=== PATIENT | female | born 1955 | race Caucasian/White ===

== ENCOUNTER 2023-12-04 11:02 | Emergency (ER) | payer MEDICARE, BC, SELFPAY ==
[2023-12-04 11:11] VITALS: BP 145/75; PULSE 47; RESP 16; TEMP 36.5; O2SAT 98
--- NOTE | 2023-12-04 11:25 | CT_ITS ---
Patient: MOISES LEWIS Facility:?[facility] Patient ID:?[id number] Site Patient ID:?[id number]. Site :?[id number] Study:?CT-Head WITHOUT-12/04/2023 11:55:56 AM Ordering Physician:NIR Final Report: INDICATION: Fall. Head injury. COMPARISON: None. TECHNIQUE: Noncontrast CT head. FINDINGS: Normal brain parenchymal morphology. No acute intracranial hemorrhage, acute infarct, focal edema, mass effect, or fracture. No midline shift. No abnormal ventricular dilatation. Normal calvarium and skull base. Visualized paranasal sinuses mastoid air cells are clear. Normal orbits bilaterally. IMPRESSION: 1. No acute intracranial abnormality. 2. Normal brain parenchymal morphology Please note that all CT scans at this facility use dose modulation, iterative reconstruction, and/or weight-based dosing when appropriate to reduce radiation dose to as low as reasonably achievable. Dictated by Balbir Joseph MD @ 12/04/2023 12:34:34 PM Signed by:?Balbir Joseph MD @12/04/2023 12:34:34 PM (Electronic Signature)
--- NOTE | 2023-12-04 11:25 | CT_ITS ---
Patient: MOISES LEWIS Facility:?[facility] Patient ID:?[id number] Site Patient ID:?[id number]. Site :?[id number] Study:?CT-Spine Cervical WITHOUT-12/04/2023 11:56:34 AM Ordering Physician:NIR Final Report: INDICATION: Fall. Head injury. COMPARISON: None. TECHNIQUE: Noncontrast CT cervical spine. FINDINGS: Straightening of the normal cervical lordosis. Normal vertebral body facet alignment. No acute fractures. No vertebral body loss of height. No spondylosis. No prevertebral soft tissue swelling. Degenerative fusion across the bilateral C3-4 facet joints. No fracture the visualized upper ribs. C1-2: No spinal canal narrowing. C2-3: No narrowing of spinal canal. Mild narrowing of bilateral foramina. C3-4: Disk degeneration. No narrowing of spinal canal. Uncovertebral joint hypertrophy results in moderate narrowing of the right neural foramen. No narrowing of the left neural foramen. C4-5: No narrowing of spinal canal. Mild narrowing of the right neural foramen. No narrowing of the left neural foramen. C5-6: No narrowing of the spinal canal. Mild to moderate narrowing of the bilateral foramina. C6-7: No spinal canal narrowing. Mild narrowing of bilateral foramina. C7-T1: No spinal canal or neural foraminal narrowing. Lung apices are clear. IMPRESSION: 1. Normal alignment. No fractures. 2. Cervical spondylosis. 3. No prevertebral soft tissue swelling. 4. At C2-3, mild narrowing of the bilateral neural foramina 5. At C3-4, moderate narrowing of the right neural foramen 6. At C5-6, [id number] narrowing of the bilateral neural foramina Please note that all CT scans at this facility use dose modulation, iterative reconstruction, and/or weight-based dosing when appropriate to reduce radiation dose to as low as reasonably achievable. Dictated by Balbir Joseph MD @ 12/04/2023 12:43:39 PM Signed by:?Balbir Joseph MD @12/04/2023 12:43:39 PM (Electronic Signature)
--- NOTE | 2023-12-04 11:34 | ED_ITS ---
HPI - Fall General Date Seen: 12/04/23 Chief Complaint: Fall/Minor Trauma Stated Complaint: fall, lac on head Time Seen by Provider: 12/04/23 11:02 Source: patient and family Mode of arrival: ambulatory Limitations: no limitations History of Present Illness HPI Narrative: Pt has balance issues was hanging clothes up in the closet and lost balance and fell backward and hit head on a handle or knob. Pt sat up right away and was with her. Bleeding is controlled, pt has an inch long lac on the back of her head. Pt doesnt know if she needs a head CT or just desiree? Patient is a very nice 68-year-old female who presents here ambulatory with the family, after she fell in her closet approximately 1-1/2 hour ago she fell backwards, she says she has really terrible balance, secondary to her neurologic condition called lateral sclerosis. She hit her head, and contacted her daughter, who was the equestrian trainer she thought she should be seen for either desiree, or possibly stitches, since this occurred she has had no problems with the nausea vomiting diaper low P issue denies any significant neck discomfort, or any other pain. No history of previous concussions brain bleeds, she is not on any anticoagulants. complaint: fall Onset (ago): minute(s) (30) Fall from: standing Fall witnessed: yes, by family Place fall occurred: home Loss of consciousness: No Prolonged down time: no Symptoms prior to fall: none Context: tripped/slipped and history of frequent falls Location of injury: head Related Data Home Medications Medication Instructions Recorded Confirmed duloxetine 20 mg capsule,delayed 20 mg PO BID 08/27/22 08/27/22 release pregabalin 200 mg capsule 200 mg PO BID 08/27/22 08/27/22 ibuprofen 400 mg tablet 400 mg PO Q8H PRN 08/31/22 08/31/22 Allergies Allergy/AdvReac Type Severity Reaction Status Date / Time cephalexin Allergy Verified 12/04/23 11:14 ciprofloxacin Allergy Hives Verified 12/04/23 11:14 Sulfa (Sulfonamide Allergy Verified 12/04/23 11:14 Antibiotics) Review of Systems Status of ROS: Reports: 10 or more systems reviewed and unremarkable except as noted in History and below PFSH PFS Surgical History S/P lumbar fusion (~03/2020) ?Z98.1 - Arthrodesis status (ICD-10) Status post right hip replacement (01/22/22) ?Z96.641 - Presence of right artificial hip joint (ICD-10) Family History Mother Hx of blood clots Social History Smoking Status: Never smoker Do you use any of these nicotine containing products: None Second hand tobacco smoke exposure: No Exam Narrative: Exam Narrative: Patient is seen in room 3 she is in no apparent distress she is an excellent conversationalist. Alert oriented x3, with a GCS of 15/15. Pupils are equal round reactive to light there is no nystagmus she tracks normally, cranial nerves 3-12 are normal her TMs are normal she has a horizontal laceration noted over her occiput, is gaping, but not acutely be ill bleeding. No obvious significant hematoma, laceration is approximately 2-2.5 inches in total length. Her neck is moves through 6-12 cm, lateral flexion normal rotation normal. Molecular Pathologist strengths are normal bilaterally, with a little bit less power on the left side which is normal for her both her arm and her leg. She is wheelchair confined. No other significant trauma is noted over her chest, thoracic, cervical, or lumbar spine. Her abdomen is soft, pelvis is normal stable. I discussed with her, options available to her I would wrist recommend let, given the size and depth of this wound, I think some sutures would be better than desiree at this point. We will do a CT to further confirm that there is no internal bleeding, and also a neck CT. I will give her some Tylenol. Const: Vital Signs, click to edit/add: Vital Signs - 24 hr 12/04/23 11:11 Temperature 97.7 F Pulse Rate [Right Pulse Oximeter] 47 L Respiratory Rate 16 Blood Pressure [Ri ght Upper Arm] 145/75 H Pulse Oximetry 98 Oxygen Delivery Me thod Room Air Documenting provider has reviewed patient's vital signs: yes Course Vital Signs Vital signs: Initial Vital Signs Temperature 97.7 F 12/04/23 11:11 Temperature Source Temporal Artery Scan 12/04/23 11:11 Pulse Rate 47 L 12/04/23 11:11 Pulse Rhythm Regular 12/04/23 11:11 Pulse Strength 3+ Normal 12/04/23 11:11 Respiratory Rate 16 12/04/23 11:11 Blood Pressure 145/75 H 12/04/23 11:11 Blood Pressure Mean 98 12/04/23 11:11 Blood Pressure Position Sitting 12/04/23 11:11 Pulse Oximetry 98 12/04/23 11:11 Oxygen Delivery Method Room Air 12/04/23 11:11 Vital Signs Temperature 97.7 F 12/04/23 11:11 Pulse Rate 47 L 12/04/23 11:11 Respiratory Rate 16 12/04/23 11:11 Blood Pressure 145/75 H 12/04/23 11:11 Pulse Oximetry 98 12/04/23 11:11 Oxygen Delivery Method Room Air 12/04/23 11:11 Temperature 97.7 F 12/04/23 11:11 Pulse Rate 47 L 12/04/23 11:11 Respiratory Rate 16 12/04/23 11:11 Blood Pressure 145/75 H 12/04/23 11:11 Pulse Oximetry 98 12/04/23 11:11 Oxygen Delivery Method Room Air 12/04/23 11:11 Medications Administered Medications: Discontinued Medications Generic Name Dose Route Start Last Admin Trade Name Geovanniq PRN Reason Stop Dose Admin Acetaminophen 1,000 mg 12/04/23 11:25 12/04/23 12:43 Acetaminophen 500 Mg Tablet PO 12/04/23 11:26 1,000 mg ONCE ONE Administration Lidocaine/Epinephrine 20 ml 12/04/23 12:16 12/04/23 12:43 Lidocaine 1%-Epi 1:100,000 20 Ml INFILTRATI 12/04/23 12:17 20 ml ONCE ONE Administration Lidocaine/Epinephrine/Tetracaine 3 ml 12/04/23 11:25 12/04/23 12:43 Lidocaine/Epinep/Tetracaine 3 Ml Gel..Ml. TOPICAL 12/04/23 11:26 3 ml ONCE ONE Administration MDM - Fall Medical Records Attestation: I reviewed the patient's medical records. Imaging Data CT scan - head: Radiologist's impression: Patient: MOISES LEWIS Facility:?[facility] Patient ID:?[id number] Site Patient ID:?[id number]. Site :?1955 Study:?CT Head WITHOUT-12/04/2023 11:55:56 AM Ordering Physician:NIR Final Report: INDICATION: Fall. Head injury. COMPARISON: None. TECHNIQUE: Noncontrast CT head. FINDINGS: Normal brain parenchymal morphology. No acute intracranial hemorrhage, acute infarct, focal edema, mass effect, or fracture. No midline shift. No abnormal ventricular dilatation. Normal calvarium and skull base. Visualized paranasal sinuses mastoid air cells are clear. Normal orbits bilaterally. IMPRESSION: 1. No acute intracranial abnormality. 2. Normal brain parenchymal morphology Please note that all CT scans at this facility use dose modulation, iterative reconstruction, and/or weight-based dosing when appropriate to reduce radiation dose to as low as reasonably achievable. Dictated by Balbir Joseph MD @ 12/04/2023 12:34:34 PM (Electronic Signature) CT- Other: Attestation: I have reviewed the pertinent imaging results. My impression: No evidence of significant cervical spine acute process, degeneration is notable primarily at multiple levels. Radiologist's is in agreement. Discharge Plan Discharge Clinical Impression: Laceration of head, Head injury, Fall Patient Disposition: Home w/ Parent or Adult Condition: Improved Instructions: Laceration (ED), Fall Prevention for Older Adults (ED), Head Injury (ED), Fall Prevention (ED), Head Laceration (ED) Additional Instructions: 4 stitches were used, these were both hemostatic, and also to bring it together. Recommend use of bacitracin on this daily, may shower later today please avoid using a brush or coma she will pull the stitches out, sutures should come out 9 days from today. Return here if increasing swelling fevers chills or signs of infection. There likely is a little bit of a head injury 2, so Tylenol for every 8 hours for the 1st couple days would be appropriate obviously if the headache worsens or you become weak or any other sort issues and come back to the emergency room I think the chance of this is low with the CT being and negative. Activity Level: No Restrictions Discharge Diet: Regular Prescriptions: No Action pregabalin 200 mg capsule 200 mg PO BID duloxetine 20 mg capsule,delayed release(DR/EC) 20 mg PO BID ibuprofen 400 mg tablet 400 mg PO Q8H PRN Follow Up/Referrals: Beti Paul MD [Primary Care Provider] - Stand Alone Forms: [facility] Info Instructions Procedures Laceration Laceration 1: Pre procedure diagnosis: Laceration to occipital Post procedure diagnosis: Same Site marking: not applicable Verification/time out: correct patient and correct site Name of person performing procedure: Jules Farris Site: scalp Size (cm): 7 Description: linear Depth: simple, single layer Local Anesthetic: lidocaine 1% and with epi Pre-repair: wound explored, irrigated extensively, deep structures intact and wound margins revised Skin layer closed with: nylon Size (cm): 3-0 Number of sutures: 4 Technique: simple interrupted Wound cleansing: sterile water Estimated blood loss (if any): none Conclusion: patient tolerated procedure
[2023-12-04] MEDS: LIDOCAINE/EPINEP/TETRACAINE 3 ML GEL..ML. TOPICAL (12:43)
[2023-12-04] MEDS: ACETAMINOPHEN 500 MG TABLET 1000 MG PO (12:43)
== END 2023-12-04 12:50 | disposition home or self-care (01) ==
PROVIDERS: Emergency Provider Family Medicine; PCP Family Medicine
DX: S01.01XA Laceration without foreign body of scalp, initial encounter (principal); W01.119A Fall on same level from slipping, tripping and stumbling with subsequent striking against unspecified sharp object, initial encounter
CPT/HCPCS: 12002; 70450; 72125; 99284; A9270

== ENCOUNTER 2023-12-24 16:35 | Inpatient (IN) | payer MEDICARE, BC, SELFPAY ==
[2023-12-24 16:50] VITALS: BP 126/81; PULSE 77; RESP 18; TEMP 36.9; O2SAT 94; BMI 29.2
--- NOTE | 2023-12-24 17:44 | ED.GENADULT ---
HPI - General Adult General Chief complaint: Eye Problems Stated complaint: Left eye pain Time Seen by Provider: 12/24/23 16:49 Source: patient Mode of arrival: wheelchair Limitations: no limitations History of Present Illness HPI narrative: 60-year-old female with a history of primary lateral sclerosis presents today with swelling of the left eye. Patient states that she was diagnosed with a blocked tear duct and was put on Augmentin on Wednesday this week. She states that since Wednesday her face has become more swollen, uncomfortable and red. She denies any fevers or chills. No nausea or vomiting. [facility] today and had a CT scan done. It showed a 1.3 x 1.5 deck or cystitis with surrounding preseptal cellulitis. Patient was instructed to come to the ER. Related Data Home Medications Medication Instructions Recorded Confirmed pregabalin 200 mg capsule 200 mg PO BID 08/27/22 12/24/23 duloxetine 30 mg capsule,delayed 30 mg PO BID 12/24/23 12/24/23 release Allergies Allergy/AdvReac Type Severity Reaction Status Date / Time cephalexin Allergy Verified 12/04/23 11:14 ciprofloxacin Allergy Hives Verified 12/04/23 11:14 Sulfa (Sulfonamide Allergy Verified 12/04/23 11:14 Antibiotics) Review of Systems Status of ROS: Reports: 10 or more systems reviewed and unremarkable except as noted in History and below [facility] Medical History (Updated 12/24/23 @ 18:00 by Shameka Sorto MD) Primary lateral sclerosis ?G12.23 - Primary lateral sclerosis (ICD-10) Vitamin B6 deficiency ?E53.1 - Pyridoxine deficiency (ICD-10) Varicose veins of both lower extremities ?I83.93 - Asymptomatic varicose veins of bilateral lower extremities (ICD-10) Surgical History (Updated 12/24/23 @ 17:52 by Shameka Sorto MD) S/P sclerotherapy of varicose veins ?Z98.890 - Other specified postprocedural states (ICD-10) ?Z86.79 - Personal history of other diseases of the circulatory system (ICD-10) S/P lumbar fusion (~03/2020) ?Z98.1 - Arthrodesis status (ICD-10) Status post right hip replacement (01/22/22) ?Z96.641 - Presence of right artificial hip joint (ICD-10) Family History Mother Hx of blood clots Social History Smoking Status: Never smoker Do you use any of these nicotine containing products: None Second hand tobacco smoke exposure: No How often do you have a drink containing alcohol: never AUDIT-C Alcohol total score: 0 Non-prescribed substance use: denies use Exam Narrative: Exam Narrative: Well-nourished well-developed patient in no acute distress. Alert and oriented. Answers questions appropriately. Mood and affect are appropriate. Thoughts are goal oriented and rational. No tangential or magical thinking noted. Patient speaks in full sentences without needing to catch her breath. HEENT: Normocephalic. Pupils are equally round reactive to light. Extraocular muscles are intact. Conjunctivae are moist without any icterus noted. Moist mucous membranes. Patient has significant swelling surrounding the left eye with what appears to be a enlarged dacrocyst. She has erythema around the eye that extends across the bridge of the nose and across the ipsilateral cheek. The skin is slightly indurated, hot to touch. Upper and lower eyelid are visibly swollen. Cardiovascular: Heart is regular rate and rhythm. Lungs: Clear to auscultation bilaterally. Const: Vital Signs, click to edit/add: Vital Signs - 24 hr 12/24/23 16:50 Temperature 98.4 F Pulse Rate [Pulse Oximeter] 77 Respiratory Rate 18 Blood Pressure [Le ft Upper Arm] 126/81 Pulse Oximetry 94 Oxygen Delivery Me thod Room Air Course Course ED Course: IV is established. Labs were drawn. I reviewed the patient's CT scan report from earlier today. Did have a conversation with Dr. Sorto who graciously accepts the patient for admission. Vital Signs Vital signs: Initial Vital Signs Temperature 98.4 F 12/24/23 16:50 Temperature Source Temporal Artery Scan 12/24/23 16:50 Pulse Rate 77 12/24/23 16:50 Pulse Rhythm Regular 12/24/23 16:50 Pulse Strength 3+ Normal 12/24/23 16:50 Respiratory Rate 18 12/24/23 16:50 Blood Pressure 126/81 12/24/23 16:50 Blood Pressure Mean 96 12/24/23 16:50 Blood Pressure Position Sitting 12/24/23 16:50 Pulse Oximetry 94 12/24/23 16:50 Oxygen Delivery Method Room Air 12/24/23 16:50 Vital Signs Temperature 98.4 F 12/24/23 16:50 Pulse Rate 77 12/24/23 16:50 Respiratory Rate 18 12/24/23 16:50 Blood Pressure 126/81 12/24/23 16:50 Pulse Oximetry 94 12/24/23 16:50 Oxygen Delivery Method Room Air 12/24/23 16:50 Temperature 98.4 F 12/24/23 16:50 Pulse Rate 77 12/24/23 16:50 Respiratory Rate 18 12/24/23 16:50 Blood Pressure 126/81 12/24/23 16:50 Pulse Oximetry 94 12/24/23 16:50 Oxygen Delivery Method Room Air 12/24/23 16:50 Medical Decision Making MDM Narrative Medical decision making narrative: 68-year-old female with Dacrocystitis and preseptal cellulitis. Patient will be admitted for IV antibiotics and further management. Discharge Plan Discharge Clinical Impression: Dacrocystitis, Preseptal cellulitis Patient Disposition: Admitted As Observation Condition: Stable
--- NOTE | 2023-12-24 17:46 | PM.IMHP1 ---
Hospitalist- H&P: HPI History of Present Illness Date Seen: 12/24/23 Chief complaint: Left eye pain Narrative: Megan Osorio is a 68 year old female none who presented to the emergency room today at the behest of her PCP, Dr. Paul, after an orbital CT today. For the past 2 weeks, she has been having watering of her left eye with moderate erythema. She was seen by optometry to presume this was allergies and placed her on steroid drops. No fevers, no eye foreign bodies, negative home COVID testing, no sick contacts. Earlier this week, she was seen by Ophthalmology who noted dacrycystitis and started her on Augmentin orally. She has completed 4 days of Augmentin and symptoms continue to worsen. She was seen by [facility] today and they planned to transition her to Levaquin, but given her allergy to Clindamycin, this was not initiated. She also had a CT scan of her orbit done today at the [facility] which demonstrated left orbital cellulitis without extension into the postseptal region. Given findings, she presented to the ER. ER course and findings: - reassuring vital signs and labs - Blood cultures collected Unasyn initiated upon arrival to the floor. Medical history is updated below. Review of Systems Status of ROS: Reports: 10 or more systems reviewed and unremarkable except as noted in History and below [facility] Medical History (Updated 12/24/23 @ 20:26 by Shameka Sorto MD) Rotator cuff tear, left ?M75.102 - Unspecified rotator cuff tear or rupture of left shoulder, not specified as traumatic (ICD-10) Primary lateral sclerosis ?G12.23 - Primary lateral sclerosis (ICD-10) Vitamin B6 deficiency ?E53.1 - Pyridoxine deficiency (ICD-10) Varicose veins of both lower extremities ?I83.93 - Asymptomatic varicose veins of bilateral lower extremities (ICD-10) Surgical History (Updated 12/24/23 @ 17:52 by Shameka Sorto MD) S/P sclerotherapy of varicose veins ?Z98.890 - Other specified postprocedural states (ICD-10) ?Z86.79 - Personal history of other diseases of the circulatory system (ICD-10) S/P lumbar fusion (~03/2020) ?Z98.1 - Arthrodesis status (ICD-10) Status post right hip replacement (01/22/22) ?Z96.641 - Presence of right artificial hip joint (ICD-10) Family History Mother Hx of blood clots Social History (Updated 12/24/23 @ 20:23 by Shameka Sorto MD) Narrative: Lives with Cory, he and daughter Heidy would share MDM if needed. Requests DNR/DNI status. Uses walker at home for ambulation and motorized wheelchair for longer distances, requires assist of 1. Nonsmoker, no ETOH. Worked at [email or web address] in [email or web address]. Smoking Status: Never smoker Do you use any of these nicotine containing products: None Second hand tobacco smoke exposure: No How often do you have a drink containing alcohol: never AUDIT-C Alcohol total score: 0 Non-prescribed substance use: denies use Meds Home Medications and Allergies Home Medications Medication Instructions Recorded Confirmed Type pregabalin 200 mg capsule 200 mg PO BID 08/27/22 12/24/23 History duloxetine 30 mg capsule,delayed 30 mg PO BID 12/24/23 12/24/23 History release Allergies Allergy/AdvReac Type Severity Reaction Status Date / Time cephalexin Allergy Verified 12/04/23 11:14 ciprofloxacin Allergy Hives Verified 12/04/23 11:14 Sulfa (Sulfonamide Allergy Verified 12/04/23 11:14 Antibiotics) Exam Narrative: Exam Narrative: GEN: Alert and oriented, nontoxic in sitting comfortably in bedside chair HEENT: Erythema and induration just inferior to left medial canthus with surrounding erythema. Eye opens almost fully, full extraocular movements noted without discomfort CV: RRR, No concerning murmurs, rubs, or gallops R: LCTA bilaterally without concerning wheezing, known been been air movement is adequate Ext: wwp, + edema bilateral ankles Skin: Be sides left eye, no other concerning skin lesions or findings Neuro: Intermittent involuntary movements of BLE, no resting tremor Psych: Appropriate Const: Vital Signs, click to edit/add: Vital Signs - 24 hr 12/24/23 16:50 Temperature 98.4 F Pulse Rate [Pulse Oximeter] 77 Respiratory Rate 18 Blood Pressure [Le ft Upper Arm] 126/81 Pulse Oximetry 94 Oxygen Delivery Me thod Room Air Assessment and Plan Assessment and plan (1) Dacrocystitis: Problem comment: - failed outpatient Augmentin - continue warm compresses for comfort Status: Acute (2) Preseptal cellulitis of left eye: Problem comment: - no evidence of postseptal involvement on 12/24/23 CT obtained at [facility] - initiate Unasyn (12/23), MRSA swab Status: Acute (3) Primary lateral sclerosis: Problem comment: - follows with Neurology and Pulmonology - on Riluzole 50mg BID, also on Baclofen, Cymbalta, and Lyrica for symptom management Status: Acute Plan - per above - Lovenox for ppx - updated at bedside, questions answered
[2023-12-24 18:13] LABS: Lactate* 0.7 mmol/L (0.5-1.9)
[2023-12-24 18:18] LABS: Basophils Absolute Auto 0.05 K/uL (0.00-0.30); Basophils Percent Auto 0.7 % (0.0-3.0); Eosinophils Absolute Auto 0.36 K/uL (0.00-0.50); Hematocrit 42.4 % (33.0-51.0); Hemoglobin* 14.1 gm/dL (12.0-16.0); Immature Granulocytes Abs Auto 0.01 K/uL (0.00-0.30); Immature Granulocytes Pct Auto 0.1 %; Lymphocytes Percent Auto 16.8 % (20-44); Mean Corpuscular HGB Conc 33 gm/dL (32-36); Mean Corpuscular Hemoglobin 32 pg (26-34); Mean Corpuscular Volume 96 fL (80-100); Monocytes Percent Auto 9.6 % (0.0-11.0); Neutrophils Absolute Auto 4.93 K/uL (1.7-7.0); Neutrophils Percent Auto 67.8 % (42.0-72.0); Platelet Count* 253 K/uL (140-440); Red Blood Count 4.42 m/uL (4.00-5.20); White Blood Count* 7.27 K/uL (4.50-11.00)
[2023-12-24 18:23] LABS: Slide Review Reflex No
[2023-12-24] MEDS: AMPICILLIN/SULBACTAM 3 GM in 0.9 % SODIUM CHLORIDE Mini-bag 100 ML IVPB (18:24)
[2023-12-24 18:32] LABS: Albumin* 4.3 g/dL (3.3-5.0); Chloride* 106 mmol/L (96-114); Sodium* 136 mmol/L (135-149)
[2023-12-24 18:33] LABS: Potassium* 3.9 mmol/L (3.6-5.1)
[2023-12-24 18:35] LABS: Alanine Aminotransferase* 17 U/L (4-35); Alkaline Phosphatase* 100 U/L (40-150); Anion Gap 4 mEq/L (7-15); Aspartate Amino Transferase* 29 U/L (12-35); Bilirubin Direct* 0.1 mg/dL (0.0-0.5); Bilirubin Total* 0.4 mg/dL (0.1-1.5); Blood Urea Nitrogen* 20 mg/dL (7-30); Carbon Dioxide* 26 mmol/L (20-32); Creatinine* 0.6 mg/dL (0.5-1.5); Estimated Glomerular Filt Rate 98 ml/min; Glucose* 91 mg/dL (60-115); Total Protein* 7.8 g/dL (6.0-8.3)
[2023-12-24 18:36] LABS: Calcium* 9.2 mg/dL (8.4-10.6)
[2023-12-24 18:48] VITALS: BP 125/84; PULSE 68; RESP 16; TEMP 36.6; O2SAT 98; BMI 31.4
[2023-12-24] MEDS: DULOXETINE 30 MG CAPSULE DR PO (21:23)
[2023-12-24] MEDS: PREGABALIN 100 MG CAPSULE 200 MG PO (21:23)
[2023-12-24] MEDS: SODIUM CHLORIDE 0.9 % (FLUSH) 10 ML SYRINGE 5 ML IVF (21:25)
[2023-12-24] MEDS: BACLOFEN 10 MG TABLET 15 MG PO (21:51)
[2023-12-24 22:11] VITALS: O2SAT 99
[2023-12-24 22:34] VITALS: BP 125/84; PULSE 85; RESP 16; TEMP 36.6; O2SAT 99
[2023-12-24 23:00] VITALS: PULSE 68; RESP 16
[2023-12-25] MEDS: AMPICILLIN/SULBACTAM 3 GM in 0.9 % SODIUM CHLORIDE Mini-bag 100 ML IVPB ×3 (00:15→12:22)
[2023-12-25 02:25] VITALS: BP 131/75; PULSE 73; RESP 18; TEMP 36.7; O2SAT 99
--- NOTE | 2023-12-25 06:39 | PC.NURSE ---
End of shift note [id number]: Pt alert & oriented x 4 and able to make needs known. Erythema and warmth noted under L eye due to current cellulitis infection being treated with IV ABX. PERRLA. Pt pivot transfers with assist of 1 using GB and wheelchair due to hx of neurological condition of lateral sclerosis causing weakness to LLE. Nonpitting edema noted to BLEs with elevation encouraged and performed. SCDs also worn to bilateral lower extremities. Pt states she does have intermittent pain to L eye if eye is touched with warm washcloth provided. Premium Service Representative has provided education and reminders throughout the shift for pt to refrain from touching L eye and surrounding area to help promote healing of area and maintain skin integrity. Skin below and around left eye noted to have erythema and warmth present along with clear drainage from eye at times. VSS and pt has been afebrile throughout the shift. Pt has been continent of bowel and bladder this shift. She has been using call light appropriately. ?
[2023-12-25 08:10] VITALS: BP 140/88; PULSE 78; RESP 16; TEMP 37.5; O2SAT 95
[2023-12-25] MEDS: BACLOFEN 10 MG TABLET 15 MG PO ×2 (08:54→14:18)
[2023-12-25] MEDS: DULOXETINE 30 MG CAPSULE DR PO (08:54)
[2023-12-25] MEDS: SODIUM CHLORIDE 0.9 % (FLUSH) 10 ML SYRINGE 5 ML IVF (08:54)
[2023-12-25] MEDS: PREGABALIN 100 MG CAPSULE 200 MG PO (08:54)
--- NOTE | 2023-12-25 10:51 | REH.PT ---
Pt has spouse assist at home with all mobility secondary to ALS. She has a 4ww for home use and a power scooter for the community. She is able to demo ind transfers supine<>sit and sit<>stand. Pt able to amb with min/sba 60' X 1 with 4ww with step to gait pattern. She has someone from the ALS society coming out to assess her home to add a ramp and make environmental changes. Pt appears to be at her baseline and isn't in need of skilled PT at this time. d/c PT. No Charge.
--- NOTE | 2023-12-25 11:04 | REH.OT ---
Addendum entered and electronically signed by Tracy Yañez, OT 12/25/23 11:15: Able to ambulate with SBA using 4WW. Original Note: OT orders for eval and treat. Pt lives in one level accessible home with spouse who provides assist or supervision with all ADLs/IADLs. Able to ambulate with SBA and complete toileting and hand hyigene with SBA, pt reports no concerns for participation in ADLs at home and has supports in place. Has home evaluation scheduled soon for possible ramp placement and for other home adaptations per pt report. Anticipate d/c home with spouse to prior living situation, OT not recommended at this time.
[2023-12-25 12:19] VITALS: BP 125/81; PULSE 74; RESP 18; TEMP 36.7; O2SAT 98
--- NOTE | 2023-12-25 15:32 | P.DS_ITS ---
Transfer Discharge Sum: Prov Provider Time Seen by Provider: 12:18 Date Seen: 12/25/23 Date of admission: 12/24/23 19:46 Primary care physician: Beti Paul MD Consults: 12/24/23 19:51 Consult to Physical Therapy [CONS] Routine Comment: Reason(s) for PT Consult:: Evaluate and Treat Any Restrictions?:: See Comment 12/24/23 22:20 Consult to Occupational Therapy [CONS] Routine Comment: Reason(s) for OT Consult:: Evaluate and Treat Any Restrictions?:: Wt Bearing as Tolerated Attending physician on discharge: Nila Hathaway Anticipated date of transfer: 12/25/23 [place] [facility] [place] DS: Diagnosis Discharge Diagnosis (1) Dacrocystitis: Status: Acute Problem details: - failed outpatient Augmentin - continue warm compresses for comfort - Worse 12/25/23 with significant swelling of the left inferior lacrimal duct (2) Preseptal cellulitis of left eye: Status: Acute Problem details: - no evidence of postseptal involvement on 12/24/23 CT obtained at [facility] - initiate Unasyn (12/23), MRSA swab - Initiated Vanco 12/24 (3) Primary lateral sclerosis: Status: Chronic Problem details: - follows with Neurology and Pulmonology - on Riluzole 50mg BID, also on Baclofen, Cymbalta, and Lyrica for symptom management Transfer Discharge Sum: Med Medications Active and Home Medications: Home Medications pregabalin 200 mg capsule 200 mg PO BID 08/27/22 [History Confirmed 12/24/23] baclofen 10 mg tablet 10 mg PO TID 12/24/23 [History Confirmed 12/25/23] baclofen 5 mg tablet 5 mg PO TID 12/24/23 [History Confirmed 12/25/23] duloxetine 30 mg capsule,delayed release 30 mg PO BID 12/24/23 [History Confirmed 12/24/23] riluzole 50 mg tablet (Rilutek) 50 mg PO BID 12/24/23 [History Confirmed 12/24/23] Active Medications Acetaminophen (Acetaminophen 325 Mg Tablet) 975 mg PO Q6H PRN Baclofen (Baclofen 10 Mg Tablet) 15 mg PO TID [facility] Last Admin: 12/25/23 14:18 Dose: 15 mg Benzocaine/Menthol (Benzocaine/Menthol 1 Each Lozenge) 1 each MUCOUS MEM Q1H PRN PRN Reason: sore/dry throat Duloxetine HCl (Duloxetine [address]) 30 mg PO BID [facility] Last Admin: 12/25/23 08:54 Dose: 30 mg Enoxaparin Sodium (Enoxaparin 40 Mg/0.4 Ml Inj) 40 mg SUBCUT HS [facility] Ampicillin Sodium/Sulbactam (Sodium 3 gm/ Sodium Chloride) 100 mls @ 200 mls/hr IVPB Q6H [facility] Last Admin: 12/25/23 12:22 Dose: 200 mls/hr Vancomycin HCl 1,250 mg/ (Sodium Chloride) 262.5 mls @ 256.25 mls/hr IVPB Q12H [facility]; Protocol Riluzole [Rilutek] (50 Mg Tablet) 0 mg PO BID [facility] Last Admin: 12/25/23 08:55 Dose: Not Given Ondansetron HCl (Ondansetron Odt 4 Mg Tab) 4 mg PO Q6H PRN Oxycodone HCl (Oxycodone 5 Mg Tablet) 2.5 - 5 mg PO Q4H PRN PRN Reason: Pain Pregabalin (Pregabalin 100 Mg Capsule) 200 mg PO BID [facility] Last Admin: 12/25/23 08:54 Dose: 200 mg Sodium Chloride (Sodium Chloride 0.9 % (Flush) 10 Ml Syringe) 5 ml IVF .FLUSH PRN Sodium Chloride (Sodium Chloride 0.9 % (Flush) 10 Ml Syringe) 5 ml IVF BID [facility] Last Admin: 12/25/23 08:54 Dose: 5 ml Transfer Discharge Sum: Hosp Hospital Course Hospital course: Per H&P: Megan Osorio is a 68 year old female none who presented to the emergency room today at the behest of her PCP, Dr. Paul, after an orbital CT today. For the past 2 weeks, she has been having watering of her left eye with moderate erythema. She was seen by optometry to presume this was allergies and placed her on steroid drops. No fevers, no eye foreign bodies, negative home COVID testing, no sick contacts. Earlier this week, she was seen by Ophthalmology who noted dacrycystitis and started her on Augmentin orally. She has completed 4 days of Augmentin and symptoms continue to worsen. She was seen by [facility] today and they planned to transition her to Levaquin, but given her allergy to Clindamycin, this was not initiated. She also had a CT scan of her orbit done today at the [facility] which demonstrated left orbital cellulitis without extension into the postseptal region. She was admitted to the hospital and started on Unasyn IV. MRSA screen is pending. Overnight there was extension of the erythema and the left inferior lacrimal duct is now significantly swollen. She had pictures on her phone of her face on Wednesday and again from yesterday which I used to compare to when I saw today and the lacrimal swelling was much more significant today as was the erythema. I spoke with Dr. Elizabeth Cervantes from our ENT service who noted that he did not perform the lacrimal services and she would need ophthalmology. He sug gested [facility] [place]. I spoke with [facility] and the patient and they were agreeable. [facility] [place] and I spoke with Dr. Parisa Michaels from Ophthalmology who agreed that this patient needed a lacrimal stent. I then spoke with Dr. Hussein Shah the hospitalist service at [facility] who accepted this patient in transfer. Vital signs have been stable than she is sent via nonemergent ambulance in stable condition to [facility] [place]. Time Spent with Patient Time attestation: Total time spent providing and/or coordinating transfer services: Exam Narrative: Exam Narrative: General: No acute distress. Awake, alert, oriented x3. No pallor. No jaundice. Eyes: Erythema and induration on the left face extends across the bridge of the nose to about the right lacrimal line, but does not include the lacrimal area of the right eye. Erythema and induration on the left base also extends laterally now including the entire left cheek. I placed several wen to outline the erythema. The patient had pictures on her phone from Wednesday and yesterday to which I was able to compare and there has been extension of the erythema and induration. Additionally she now has a new area at the left inferior lacrimal gland that is significantly swollen, almost blister-like. She has swelling of both upper and lower eyelids although upper eyelid is not erythematous or indurated. There is no ptosis noted, she is able to fully open her left eye although there is swelling from the upper eyelid and lower eyelid. Extraocular movements are full without discomfort or pain. Vision is grossly intact bilaterally. Oropharynx: Clear. Mucous membranes moist. Cardiovascular: Regular rate and rhythm. No murmurs, gallops, or rubs. Respiratory: Clear to auscultation bilaterally. No wheezes or crackles. Const: Vital Signs, click to edit/add: Vital Signs - 24 hr 12/24/23 16:50 12/24/23 18:48 12/24/23 22:11 Temperature 98.4 F 97.8 F Pulse Rate [Left R adial] 68 Pulse Rate [Pulse Oximeter] 77 Respiratory Rate 18 16 Blood Pressure [Le ft Arm] 125/84 Blood Pressure [Le ft Upper Arm] 126/81 Pulse Oximetry 94 98 99 Oxygen Delivery Me thod Room Air Room Air Room Air 12/24/23 22:34 12/24/23 23:00 12/25/23 02:25 Temperature 97.8 F 98.1 F Pulse Rate [Left R adial] 85 68 73 Pulse Rate [Pulse Oximeter] Respiratory Rate 16 16 18 Blood Pressure [Le ft Arm] 125/84 131/75 Blood Pressure [Le ft Upper Arm] Pulse Oximetry 99 99 Oxygen Delivery Me thod Room Air Room Air 12/25/23 08:10 12/25/23 12:19 Temperature 99.5 F 98.1 F Pulse Rate [Left R adial] 78 74 Pulse Rate [Pulse Oximeter] Respiratory Rate 16 18 Blood Pressure [Le ft Arm] 140/88 H 125/81 Blood Pressure [Le ft Upper Arm] Pulse Oximetry 95 98 Oxygen Delivery Me thod Room Air Room Air Discharge Plan Discharge Disposition: [facility] Discharge Location: [facility] Date of Admission: 12/24/23 19:46 Attending Provider on Discharge: Nila Hathaway Primary Care Provider: Beti Paul Condition: Stable Discharge Orders: Transfer of Care to Other Hospital (ORDER); Ordered 12/25/23 Ordered By: Nila Hathaway Oxygen: No Urinary Catheter: No Services not available here: Ophthalmology
--- NOTE | 2023-12-25 17:04 | PC.NURSE ---
Pt. transferred to [facility] [place] at 1702 via [facility] [id number] report given to Nurse Elli at [facility].
== END 2023-12-25 17:02 | disposition short-term general hospital (02) | DRG 121 ==
LOC: ED 17:51 → MEDSURG 18:20
PROVIDERS: Admitting Provider Family Medicine; Emergency Provider Family Medicine; PCP Family Medicine; Visit Provider Family Medicine
DX: H04.322 Acute dacryocystitis of left lacrimal passage (principal); G12.23 Primary lateral sclerosis; L03.213 Periorbital cellulitis
CPT/HCPCS: 36415; 80048; 80076; 83605; 85025; 87040; 87081; 99284; A9270; J0295; J3370; J7030

== ENCOUNTER 2023-12-25 16:50 | Outpatient (CLI) | payer MEDICARE, BC, SELFPAY | END 2023-12-25 16:51 | disposition home or self-care (01) | LOC: AMB 12-30 06:40 | PROVIDERS: PCP Family Medicine; Visit Provider Family Medicine | DX: H57.12 Ocular pain, left eye (principal) | CPT/HCPCS: A0425; A0428 ==